=== PATIENT | male | born 1980 | race Caucasian/White ===

== ENCOUNTER 2019-12-14 21:39 | Emergency (ER) | payer MEDICAID ==
[~2019-12-14] VITALS: Ht 172.7 cm; Wt 100.0 kg
[~2019-12-14 21:39] MED LIST: LIDOcaine 1% W/epiNEPHrine 1:100,000 20ml vial ONE
[2019-12-14 21:45] VITALS: BP 137/99
[2019-12-14] MEDS ORDERED: bacitracin 15gm ointment TP ONE (22:00)
[2019-12-14] MEDS ORDERED: TETanus/Pertussis (Acell)/Diphther VAC/PF (Tdap-Adult) 0.5ml syringe IMVAC ONE (22:00)
[2019-12-14] MEDS ORDERED: ondansetron 4mg rapidly disintigrating tab PO ONE (22:00)
[2019-12-14] MEDS ORDERED: sulfamethoxazole/trimethoprim DS (800/160mg) tablet PO ONE (22:00)
[2019-12-14] MEDS ORDERED: HYDROcodone/acetaminophen 5mg/325mg tablet PO ONE (22:00)
[2019-12-14] MEDS ORDERED: SULF1TAB49 PO (22:00)
== END 2019-12-14 22:25 | disposition home or self-care (01) ==
LOC: ER 21:40
DX: L03.116 Cellulitis of left lower limb (principal)
CPT/HCPCS: 10060; 90471; 90715; 99284

== ENCOUNTER 2020-12-14 09:03 | Emergency (ER) | payer MEDICAID ==
[~2020-12-14] VITALS: Ht 172.7 cm; Wt 105.0 kg
[2020-12-14 09:06] VITALS: BP 126/90
[2020-12-14] MEDS ORDERED: NEOM10DR45 LEFT EAR (09:14)
[2020-12-14] MEDS ORDERED: PENI500T2 PO (09:14)
--- NOTE | 2020-12-14 09:17 | NUR ---
Pt seen, assessed, treated, and discharged by provider prior to nursing assessment/intervention. See MD chart notes.
== END 2020-12-14 09:18 | disposition home or self-care (01) ==
LOC: ER 09:04
DX: H60.92 Unspecified otitis externa, left ear (principal); F17.200 Nicotine dependence, unspecified, uncomplicated; Z79.2 Long term (current) use of antibiotics; Z79.899 Other long term (current) drug therapy
CPT/HCPCS: 99283

== ENCOUNTER 2022-09-30 07:40 | Emergency (ER) | payer MEDICAID ==
[~2022-09-30] VITALS: Ht 172.7 cm; Wt 98.0 kg
[2022-09-30 07:52] VITALS: BP 145/103
== END 2022-09-30 13:39 | disposition left against medical advice (07) ==
LOC: ER 07:41
DX: R50.9 Fever, unspecified (principal); Z53.21 Procedure and treatment not carried out due to patient leaving prior to being seen by health care provider

== ENCOUNTER 2025-06-15 18:25 | Emergency (ER) | payer MEDICAID | END 2025-06-15 19:31 | disposition left against medical advice (07) | LOC: ER 18:25 | DX: R10.9 Unspecified abdominal pain (principal); Z53.21 Procedure and treatment not carried out due to patient leaving prior to being seen by health care provider ==